=== PATIENT | male | born 1995 | race Caucasian/White ===

== ENCOUNTER 2017-11-15 09:44 | Emergency (ER) | payer BC, OTHER ==
[2017-11-15] MEDS ORDERED: SODIUM CHLORIDE 1,000 ML IV STA (09:51)
[2017-11-15] MEDS ORDERED: FAMOTIDINE 20 MG/50 ML IVPB 20 MG/50 ML MG IVPB ONE ×2 (09:51→10:03)
[2017-11-15] MEDS ORDERED: ONDANSETRON 4 MG/2 ML VIAL IVPB ONE (09:53)
[2017-11-15] MEDS ORDERED: MAG HYDROX/AL HYDROX/SIMETH 30 ML UNIT-DOSE CUP PO ONE (09:53)
[2017-11-15 10:00] VITALS: TEMP 98.9; BMI 22.8
--- NOTE | 2017-11-15 10:02 | PDOC ---
History of Present Illness - General Chief Complaint: Pain Stated Complaint: PAIN TO RIGHT AND MID CHEST WITH DEEP BREATHING Time Seen by Provider: 11/15/17 09:47 History Source: Patient, Parent(s) Exam Limitations: No Limitations - History of Present Illness Initial Comments: This is a 22 YOM with h/o GERD who presents with 8/10 constant sharp stabbing epigastric pain radiating to his back and lower mid-chest for the past day. His pain has generally been worsening since the onset yesterday (which occurred while he was sitting and resting at home) and is exacerbated by deep breathing. He has taken Gaviscon with partial relief, and also has tried TheraFlu and ibuprofen without additional relief. He feels like any pills are getting stuck in his throat. His additional symptoms are nausea, non-bilious but blood-tinged vomiting x4 this morning (blood was present on the first episode), decreased appetite, cold sweats, and subjective fever. His last bowel movement was two days ago and was normal (not black/white/bloody) and he attributes his lack of BMs over the past two days to decreased appetite. He denies any dizziness, headache, jaw/shoulder/arm pain, cough, runny nose, sore throat, or recent falls /injuries. He has had multiple sick contacts recently. Past History - Past Medical History Allergies/Adverse Reactions: Allergies Allergy/AdvReac Type Severity Reaction Status Date / Time Penicillins Allergy Verified 11/15/17 09:47 Home Medications: Ambulatory Orders NK [No Known Home Medication] 11/15/17 - Suicide/Smoking/Psychosocial Hx Smoking History: Current every day smoker Have you smoked in the past 12 months: Yes Number of Cigarettes Smoked Daily: 14 'Breaking Loose' booklet given: 07/05/16 Hx Alcohol Use: Yes (WEEKENDS) Drug/Substance Use Hx: No Substance Use Type: None Review of Systems - Review of Systems Able to Perform ROS?: Yes Constitutional: Yes: Fever (subjective), Loss of Appetite. No: Chills, Unexplained wgt Loss HEENTM: No: Nose Congestion, Throat Pain Respiratory: No: Cough, Shortness of Breath Cardiac (ROS): Yes: Chest Pain. No: Edema, Lightheadedness, Palpitations, Syncope ABD/GI: Yes: Nausea, Vomiting, Other (abdominal pain). No: Constipated, Diarrhea : No: Burning, Dysuria Musculoskeletal: Yes: Back Pain. No: Neck Pain Integumentary: No: Bruising, Rash Neurological: No: Headache, Numbness, Tingling, Weakness, Dizziness Endocrine: No: Unexplained Weight Gain, Unexplained Weight Loss *Physical Exam - Physical Exam General Appearance: Yes: Nourished, Appropriately Dressed, Mild Distress, Thin, Other (well-appearing but uncomfortable young man accompanied at bedside by his mother, answering questions appropriately, occasionally rubbing his epigastrium/ substernal region in discomfort) HEENT: positive: EOMI, MANISH, Normal ENT Inspection, Normal Voice, Hearing Grossly Normal. negative: Scleral Icterus (R), Scleral Icterus (L), Nasal Congestion Neck: positive: Trachea midline, Supple. negative: Tender, Rigid Respiratory/Chest: positive: Chest Tender (mild tenderness to compression of the anterior inferior chest wall), Lungs Clear, Normal Breath Sounds. negative : Respiratory Distress, Crackles, Rhonchi, Stridor, Wheezing Cardiovascular: positive: Regular Rhythm, S1, S2, Tachycardia. negative: Edema , JVD, Murmur Comments:: radial pulses equal bilaterally Gastrointestinal/Abdominal: positive: Normal Bowel Sounds, Tender (moderate epigastric ttp, mild RUQ and LUQ ttp), Flat, Soft. negative: Organomegaly, Pulsatile Mass, Guarding, Rebound Musculoskeletal: positive: Normal Inspection. negative: CVA Tenderness, Decreased Range of Motion, Vertebral Tenderness Extremity: positive: Normal Capillary Refill, Normal Inspection, Normal Range of Motion. negative: Tender, Cyanosis Integumentary: positive: Normal Color, Dry, Warm, Other (three linear superficial abrasions to left anterior wrist, no track wren). negative: Erythema, Rash, Bruising Neurologic: positive: dependency program director II-XII NML intact (grossly), Fully Oriented, Alert, Normal Mood/Affect, Normal Response, Motor Strength 5/5. negative: Confused, Disoriented ED Treatment Course - LABORATORY CBC & Chemistry Diagram: 11/15/17 10:10 11/15/17 10:10 - RADIOLOGY Radiology Studies Ordered: Category Date Time Status CHEST X-RAY PORTABLE* [RAD] Stat Radiology 11/15/17 09:53 Ordered Medical Decision Making - Medical Decision Making 22 YOM with h/o GERD who p/w epigastric pain radiating to the back. On exam he has epigastric ttp, CW ttp inferiorly, tachycardic, BP 144/97, one episode vomiting clear secretions. DDX IBNLT PUD, gastritis, pancreatitis, pill esophagitis/gastritis, Prinzmetal' s angina, PTX, PNA, julianna/reina/endocarditis, AAA, PE, etc. Ordered is CBCD CMP Mg Phos Cardiac panel PT/INR CXR EKG Maalox Pepcid Zofran. 11/15/17 10:39 Tachycardia resolves spontaneously, patient low-risk for PE on PERC criteria. CXR and EKG without e/o acute pathology. 11/15/17 12:02 Mild hyponatremia on CMP, lipase 20, 1+ protein in UA, otherwise labs wnl. Patient's symptoms much improved but not 100% after zofran, maalox, and pepcid. Viscous lidocaine PO ordered and will reassess afterward. Most likely patient has UGI pathology like pill esophagitis/gastritis or PUD without perf. 11/15/17 12:19 Pt's repeat abdominal exam is benign. He is comfortable with plan to go home with close PCP and GI followup. GI referral info given. Return precautions are discussed. *DC/Admit/Observation/Transfer Diagnosis at time of Disposition: Hyponatremia Abdominal pain Qualifiers: Abdominal location: epigastric Qualified Code(s): R10.13 - Epigastric pain Vomiting Qualifiers: Vomiting type: unspecified Vomiting Intractability: non-intractable Nausea presence: with nausea Qualified Code(s): R11.2 - Nausea with vomiting, unspecified - Discharge Dispostion Disposition: HOME Condition at time of disposition: Stable Admit: No - Referrals Referrals: Praful Clemons MD [Staff Physician] - - Patient Instructions Printed Discharge Instructions: DI for Epigastric Pain Additional Instructions: You were seen in the ER for upper abdominal pain. We did laboratory work on your blood and urine and found only low sodium level. Please have a salty snack today, or an electrolyte drink with sodium in it. Please follow up with your PCP about this and have your sodium level rechecked. We also did an electrocardiogram and a chest x-ray and these were normal. We believe you have either gastritis or esophagitis (irritation of the lining of the upper GI tract) . You may have a peptic ulcer. Please follow up with your PCP and a GI doctor. We are giving you referral information for a GI doctor in this packet of information. Return to the ER for any new or worsening symptoms. - Post Discharge Activity
[2017-11-15] MEDS ORDERED: ONDANSETRON 4 MG/2 ML VIAL ONE (10:03)
[2017-11-15] MEDS ORDERED: MAG HYDROX/AL HYDROX/SIMETH 30 ML UNIT-DOSE CUP ONE (10:03)
[2017-11-15 10:36] LABS: INR 1.04 (0.82-1.09); PROTHROMBIN TIME (PATIENT) 11.6 SEC (10.2-13.0)
[2017-11-15 10:38] VITALS: BP 127/84; PULSE 71
[2017-11-15 10:39] LABS: HEMATOCRIT 43.6 % (35.4-49); HEMOGLOBIN 14.6 GM/dl (11.7-16.9); MCH 31.9 pg (25.7-33.7); MCHC 33.4 g/dl (32.0-35.9); MEAN CELL VOLUME 95.6 fl (80-96); MEAN PLT VOLUME 9.6 fl (7.5-11.1); RBC 4.56 M/mm3 (4.00-5.60); WHITE BLOOD COUNT 9.7 K/mm3 (4.0-10.8)
[2017-11-15 10:41] LABS: ALBUMIN 4.4 g/dl (3.5-5.0); ALK PHOS 47 U/L (32-92); ANION GAP 7 (8-16); BILIRUBIN,TOTAL 0.5 mg/dl (0.2-1.0); BLOOD UREA NITROGEN 14 mg/dl (7-18); CALCIUM 8.8 mg/dl (8.4-10.2); CHLORIDE 101 mmol/L (98-107); CO2 21 mmol/L (22-28); GLUCOSE,RANDOM 105 mg/dl (74-106); MAGNESIUM 1.7 mg/dL (1.8-2.4); PHOSPHOROUS 2.3 mg/dl (2.5-4.6); POTASSIUM 3.8 mmol/L (3.5-5.1); SGOT/AST 35 U/L (10-42); SGPT/ALT 25 U/L (10-40); SODIUM 129 mmol/L (136-145); TOT PROT 7.3 g/dl (6.4-8.3)
[2017-11-15 11:33] LABS: PH,URINE 8.5 (4.5-8); URINE APPEARANCE Clear; URINE BILIRUBIN Negative (NEGATIVE); URINE BLOOD Negative (NEGATIVE); URINE COLOR YELLOW; URINE GLUCOSE (UA) Negative (NEGATIVE); URINE KETONE Negative (NEGATIVE); URINE LEUK ESTERASE Negative (NEGATIVE); URINE NITRITE Negative (NEGATIVE); URINE PROTEIN 1+ (NEGATIVE); URINE UROBILINOGEN 0.2 (0.2-1.0)
--- NOTE | 2017-11-15 11:34 | PDOC ---
Attending Attestation - Resident Resident Name: Magui Akbar - ED Attending Attestation I have performed the following: I have examined & evaluated the patient, The case was reviewed & discussed with the resident, I agree w/resident's findings & plan, Exceptions are as noted - HPI HPI: 11/15/17 11:31 22 M with h/o GERD presents to ER with epigastric abdominal pain x 1 day. Pt states that the pain began last night and progressively worsened. It radiates from his epigastric region towards his back. Pt reports several episodes of N+ V. No bloody or bilious emesis. Pt denies chest pain. Denies SOB, though he states he feels the pain more with deep inspiration. Denies diarrhea/ constipation. No F/C. Pt notes he took an ibuprofen and felt like it got stuck in his throat. Denies foreign body sensation in his throat currently. Has been able to swallow without issue. Pt endorses occasional ETOH use. Last drink was 2 days ago - a few beers. - Physicial Exam PE: 11/15/17 11:32 "GENERAL: Awake, alert, and fully oriented, in no acute distress HEAD: No signs of trauma EYES: PERRLA, EOMI, sclera anicteric, conjunctiva clear ENT: Auricles normal inspection, hearing grossly normal, nares patent, oropharynx clear without exudates. Moist mucosa NECK: Nontender, no stepoffs, Normal ROM, supple, no lymphadenopathy, JVD, or masses LUNGS: Breath sounds equal, clear to auscultation bilaterally. No wheezes, and no crackles HEART: Regular rate and rhythm, normal S1 and S2, no murmurs, rubs or gallops ABDOMEN: + epigastric TTP, no rebound/guarding, negative howell's EXTREMITIES: Normal range of motion, no edema. No clubbing or cyanosis. No cords, erythema, or tenderness NEUROLOGICAL: Cranial nerves II through XII intact. 5/5 strength and sensation in all extremities, Normal speech, normal gait SKIN: Warm, Dry, normal turgor, no rashes or lesions noted. " - Medical Decision Making 11/15/17 11:33 22 M with epigastric pain. Possible gastritis vs pancreatitis. Possible pill esophagitis. Pt does endorse pleuritic nature of pain but has no DVT/PE risk factors, PERC score 0. - Labs, lipase - CXR to r/o free air - GI cocktail 11/16/17 08:01 Labs wnl. CXR unremarkable. Pt reassessed - reports significant improvement in pain s/p GI cocktail. Now able to tolerate PO. Suspect pill esophagitis. Will DC with GI f/u. I discussed the physical exam findings, ancillary test results and final diagnoses with the patient. I answered all of the patient's questions. The patient was satisfied with the care received and felt comfortable with the discharge plan and treatment plan. The patient agrees to follow up with the primary care physician within 24-72 hours.
[2017-11-15 11:38] LABS: PLATELET COUNT 221 K/MM3 (134-434)
[2017-11-15] MEDS ORDERED: LIDOCAINE VISCOUS 2% ORAL/TOP 20 ML UNIT-DOSE CUP MM ONE ×2 (12:00→12:04)
[2017-11-15] MEDS ORDERED: LIDOCAINE VISCOUS 2% ORAL/TOP 20 ML UNIT-DOSE CUP ONE (12:04)
[2017-11-15 13:39] LABS: URINE RBC NONE SEEN /hpf (0-3); URINE WBC 0-2 (0-2)
[2017-11-15 13:40] LABS: EPI CELLS NONE SEEN /HPF; URINE BACTERIA NEGATIVE /hpf (NEGATIVE)
[2017-11-15 13:48] LABS: PLATELET ESTIMATE ADEQUATE
--- NOTE | 2017-11-16 09:00 | EKG ---
Test Reason : Blood Pressure : / mmHG Vent. Rate : 066 BPM Atrial Rate : 066 BPM P-R Int : 140 ms QRS Dur : 094 ms QT Int : 378 ms P-R-T Axes : 053 078 064 degrees QTc Int : 396 ms NORMAL SINUS RHYTHM NORMAL ECG NO PREVIOUS ECGS AVAILABLE Confirmed by MERON FONG MD ([id number]) on 11/16/2017 9:00:16 AM Referred By: MD GLYNN Confirmed By:MERON FONG MD
== END 2017-11-15 12:39 | disposition home or self-care (01) ==
LOC: FER 09:44
PROC: 3E033GC Introduction of Other Therapeutic Substance into Peripheral Vein, Percutaneous Approach (ICD-10-PCS; principal; 2017-11-15)
PROC: 3E0337Z Introduction of Electrolytic and Water Balance Substance into Peripheral Vein, Percutaneous Approach (ICD-10-PCS; 2017-11-15)
DX: R10.13 Epigastric pain (principal); R11.2 Nausea with vomiting, unspecified
CPT/HCPCS: 36415; 71046-TC; 80053; 81003; 81015; 82550; 83690; 83735; 84100; 84484; 85025; 85610; 87086; 93005; 99283-25